=== PATIENT | female | born 1965 | race Caucasian/White ===

== ENCOUNTER → 2017-04-12 | Outpatient (CLI) | payer OTHER ==
[~2017-04-12] MED LIST: CELEBREX200 MG PO; CIPRO 500MG TA500 MG PO; CRESTOR20 MG; SYNTHROID 0.00.05 MG
--- NOTE | 2017-04-12 16:38 | RADIOLOGY REPORT PS360 ---
US THYROID HISTORY: THYROID NODULE ORDERING PHYSICIAN: Emmett Bonilla MD PATIENT AGE: 51 years COMPARISON: 01/01/2015 FINDINGS: Right lobe: The right lobe has been removed Left lobe: The left lobe measures 4.7 x 1.6 x 1.8 cm. There is a question of a 17 x 8 mm nodule in the upper pole. Previously this was measured at 25 x 8 mm and may represent an area of heterogeneous echogenicity. A discrete nodule is not readily apparent. IMPRESSION: 1. Status post right thyroidectomy. 2. Heterogeneous nodularity of the left lobe which appears somewhat less apparent when compared to the previous exam. A discrete nodule was not demonstrated in 2 planes
== END ==
LOC: RAD 14:23
DX: Z86.39 Personal history of other endocrine, nutritional and metabolic disease (principal)

== ENCOUNTER → 2017-04-17 | Outpatient (CLI) | payer OTHER ==
--- NOTE | 2017-04-18 09:31 | RADIOLOGY REPORT PS360 ---
DIG MAMM-SCREEN IMPLANT W/CAD ORDERING PHYSICIAN : Zoran Salgado MD PATIENT AGE: 51 years GENDER: Female COMPARISON: March 2016 & 2014. December HISTORY:Bilateral breast implants 10 years. No new complaints. Implanton in arm. TECHNIQUE: TECHNIQUE: Godfrey technique utilized. CC & MLO images were obtained of the breast tissue overlying implant, as well as a second set of images including the breast implant. Mammography is inherently limited due to the implants is a could obscure areas of breast R2 CAD reviewed. FINDINGS:. Moderately dense patchy inhomogeneous breast parenchymal character along with the bilateral breast implants decrease sensitivity of mammography in this patient. RIGHT BREAST: Area of density at the deep lateral right breast dissipates on the axillary cc view and MLO view on overall appears similar to prior studies. A back to 2010. But no significant new findings.. Dense Calcification along the margin of the breast implant of bilaterally again noted LEFT BREAST: Focal area of relative asymmetric density at the deep upper outer quadrant left breast overlying implant has been seen on multiple previous studies dating back to at least 2011/at 2010. It dissipates somewhat & less evident on the axillary cc view. Given its relative stability ongoing follow-up one year adequate.. Also ultrasounds performed back in 2008 and showed dense fibrous tissue at this region 3 o'clock position. I would encourage self breast examination if any unique persistent palpable area arises ultrasound be useful compliment to mammography in breast of this diffusely dense character and implants, & overall difficult to evaluate with mammography IMPRESSION: No significant new area of concern., But note the fairly dense breast pattern along with Bilaterally breast implants, limit & decreased sensitivity of mammography. Area what appears to be stable focal fibroglandular density deep axillary left breast with no appreciable change compared to multiple prior old studies. Can be followed in one year presumably no palpable abnormality here.. . Self breast exam would be encouraged and if any focal palpable area arises, a low threshold for ultrasound would be suggested to further evaluate to compliment mammography. BI-RADS CATEGORY: 2_Benign RECOMMENDED FOLLOWUP: 11M 12 MONTH FOLLOW-UP (A letter has been sent to the patient regarding results of the study.)
== END ==
LOC: RAD 09:35
DX: Z12.31 Encounter for screening mammogram for malignant neoplasm of breast (principal)
CPT/HCPCS: G0202